=== PATIENT | female | born 1960 | race Caucasian/White ===

== ENCOUNTER 2018-11-27 19:32 | Emergency (ER) | payer OTHER ==
[~2018-11-27] VITALS: Ht 162.6 cm; Wt 72.3 kg
[2018-11-27 19:44] VITALS: Ht 162.6 cm; Wt 72.3 kg
[2018-11-27] MEDS ORDERED: VALA10004 PO (20:29)
[2018-11-27] MEDS ORDERED: IBUP-1542 PO (20:29)
[2018-11-27] MEDS ORDERED: traMADol 50 MG TAB PO STA (20:29)
--- NOTE | 2018-11-27 20:43 | ERD ---
ER Documentation Chief Complaint Chief Complaint perineal and vaginal redness and pain with left sided bump x3 weeks. HPI 58-year-old female with no significant past medical history presents to the ED with complaints of vaginal pain for the past 15 days. Pain has been constant, and getting gradually worse. Patient states she initially felt pain along her left inguinal region about 15 days ago, but this became gradually worse 3-4 days ago. Pain is described as a burning sensation now radiating towards her left labia majora. She denies any vaginal discharge. Denies any fevers, chills, frequency, urgency, dysuria, hematuria, abdominal pain or flank pain. She did notice a vesicular rash noted to form around the area of pain 3-4 days ago. She has been taking ibuprofen for pain with minimal relief. Patient is otherwise healthy with no other complains. Her last Pap smear was over a year ago and normal. ROS All systems reviewed and are negative except as per history of present illness. Medications Home Meds Active Scripts Tramadol HCl (Tramadol HCl) 50 Mg Tablet, 50 MG PO Q4 PRN for PAIN, #30 TAB Prov:DISHIGRIKIAN,ZEPYUR N PA-C 11/27/18 Ibuprofen* (Motrin*) 600 Mg Tab, 600 MG PO Q6, #30 TAB Prov:DISHIGRIKIAN,ZEPYUR N PA-C 11/27/18 Valacyclovir HCl (Valtrex) 1,000 Mg Tablet, 1000 MG PO TID for 7 Days, #21 TAB Prov:DISHIGRIKIAN,ZEPYUR N PA-C 11/27/18 Allergies Allergies: Coded Allergies: No Known Allergy (Unverified , 11/27/18) PMhx/Soc Hx Respiratory Disorders: Yes (ASTHMA ) Hx Cardiac Disorders: Yes (HTN ) Hx Alcohol Use: No Hx Substance Use: No Hx Tobacco Use: No Smoking Status: Never smoker Physical Exam Vitals Vital Signs Date Temp Pulse Resp B/P (MAP) Pulse Ox O2 O2 Flow FiO2 Time Delivery Rate 11/27/18 98.1 91 18 184/89 99 19:44 (120) Physical Exam Const: No acute distress Head: Atraumatic Eyes: Normal Conjunctiva ENT: Normal External Ears, Nose and Mouth. Neck: Full range of motion. No meningismus. Resp: Clear to auscultation bilaterally Cardio: Regular rate and rhythm, no murmurs Abd: Soft, non tender, non distended. Normal bowel sounds Skin: + multiple vesicular lesions noted along the left labia majora following S3 dermatome root, consistent with herpes zoster Back: No midline or flank tenderness Ext: No cyanosis, or edema Neur: Awake and alert Psych: Normal Mood and Affect Results 24 hrs Current Medications Medications Dose Sig/Olivia Start Time Status Last (Trade) Ordered Route PRN Stop Time Admin Dose Reason Admin Tramadol 50 mg ONCE STAT 11/27/18 DC 11/27/18 HCl PO 20:29 20:35 (Ultram) 11/27/18 20:30 Procedures/MDM Nursing Notes Reviewed. Previous Medical Records requested via the Electronic Health Record. EMERGENCY DEPARTMENT COURSE / MEDICAL DECISION MAKING: Patient is a 58-year-old female presents to the ED with complaints of pain and a rash to her labia majora area, consistent with herpes zoster. No signs or symptoms to suggest a secondary bacterial infection. Patient's pain was treated in the ED with IM Toradol. She was discharged home with a prescription for Valtrex as well as Tramadol. She was offered stronger pain medications the patient deferred. Discussed with family that neurologic complications such as postherpetic neuralgia can be very common in someone with shingles. I recommended that they follow-up with the dumper mold cleaner in 2 days or return to the ED for any new or worsening symptoms. At this time, patient is stable for discharge, vital signs are reviewed and remained stable during course of stay in the ED. DISPOSITION PLAN: We discussed follow up with the patient's primary care doctor within 24 to 48 hours. Patient counseled regarding my diagnostic impression and care plan. Prior to discharge all questions answered. Pt agrees with treatment plan and understands strict return precautions. Precautionary instructions provided including instructions to return to the ER if not improving or for any worsening or changing symptoms or concerns. ExitCare instructions provided. Prior to discharge, patients vital signs have been reviewed SPECIALIST FOLLOW UP RECOMMENDED: None Patient has been advised to follow up with primary care in 1-2 days. Blood Pressure Assessment: Patient's blood pressure was elevated (>120/80) but appears stable without evidence of hypertension emergency or urgency. The pa rex was counseled about the risks of hypertension and urged to pursue outpatient monitoring and therapy within a week with their primary care physician. Departure Diagnosis: Primary Impression: Shingles Condition: Stable Patient Instructions: Shingles (Herpes Zoster) Additional Instructions: Please see her primary care provider in 2 days. Her symptoms are most consistent with shingles. You have been given antivirals for this, please finish the entire course. Return to the ED for any new or worsening symptoms. JACQUELIN MARIE PA-C Nov 27, 2018 20:43
[2018-11-27] MEDS ORDERED: TRAM50TA2 PO (20:50)
[2018-11-27 21:00] VITALS: BP 187/95; PULSE 74; RESP 18
== END 2018-11-27 21:02 | disposition home or self-care (01) ==
LOC: FTE 19:32
DX: B02.9 Zoster without complications (principal); I10 Essential (primary) hypertension; J45.909 Unspecified asthma, uncomplicated
CPT/HCPCS: Z7502; Z7610; 99283